=== PATIENT | female | born 1950 | race Hispanic/Latino ===

== ENCOUNTER → 2024-09-04 | Outpatient (CLI) | payer OTHER ==
--- NOTE | 2024-09-08 15:18 | HMCSR ---
APPROVED REPORT EXAM: Two-dimensional and M-mode echocardiogram with Doppler and color Doppler. INDICATION ICD: I10.0 Essential (primary) Hypertension 2D Dimensions RVDd3.7 cmLVEF(%)65.8 (>50%)LVED Vol(simp.)93.0 mL IVSd0.8 (0.7-1.1cm)FS(%)36 %LVES Vol(simp.)35.0 mL LVDd4.5 (3.8-5.6cm)Ao Root(2D)2.9 (2.0-3.7cm)LVEF(%, simp.)62 % PWd0.9 (0.7-1.1cm)LVOT diam1.9 (1.8-2.4cm)LA ESV INDEX (BP)26.40 mL/m2 LVDs2.9 (2.5-4.0cm)IVC diam1.7 cm Aortic Valve AoV Vmax2.1 m/Paty Peak GR17.8 mmHgLVOT Vmax1.6 m/s AoV VTI0.5 mAo Mean GR9.0 mmHgLVOT VTI0.33 m JAMISON (VMAX)2.0 cm2Al P1/2T818 msAVA (VTI) 2.0 cm2 Mitral Valve MV E Vmax93.0 cm/sDECEL Hoyw290 ms MV A Xsix345.1 cm/sP 1/2 T50 ms E/A ratio0.9MVA (PHT)4.4 cm2 MR Max PG27 mmHg TDI E/E' Hlwtlp11.2E/E' Shnziwd84.8 Pulmonary Valve PV Vmax1.2 m/sPV VTI0.31 mPV Mean GR4 mmHg PV Peak GR5.7 mmHg Tricuspid Valve TR Vmax2.9 m/sRAP (EST) 3 leIxUZOE29.8 mmHg TR Peak GR33.8 mmHg Left Ventricle Left ventricular cavity size is normal. There is normal LV segmental wall motion. There is normal lef t ventricular wall thickness. LVEF is 60-65%. No left ventricle thrombus noted on this study. Grade 2 diastolic dysfunction. Right Ventricle The right ventricle is normal size. The right ventricular systolic function is normal. Atria The left atrium size is normal. The right atrium size is normal. Aortic Valve Aortic valve is trileaflet. Aortic valve leaflets are sclerotic but open well. Trace aortic regurgita tion. There is no aortic valvular stenosis. Mitral Valve Mitral valve leaflets are mildly sclerotic but open well. Mitral regurgitation is trace. There is no mitral valve stenosis. Tricuspid Valve The tricuspid valve leaflets appear normal. There is mild tricuspid regurgitation. Right ventricular systolic pressure is estimated at 30-40 mmHg. Pulmonic Valve The pulmonic valve leaflets are thin and pliable; valve motion is normal. There is trace pulmonic gaurav vular regurgitation. Great Vessels The aortic root is normal in size. The IVC is normal in size and collapses >50% with inspiration. Pericardium No pericardial effusion. Conclusion Left ventricular cavity size is normal. LVEF is 60-65%. Grade 2 diastolic dysfunction. The right ventricle is normal size. The left atrium size is normal. Aortic valve is trileaflet. Aortic valve leaflets are sclerotic but open well. Trace aortic regurgitation. Mitral valve leaflets are mildly sclerotic but open well. Mitral regurgitation is trace. There is mild tricuspid regurgitation. Right ventricular systolic pressure is estimated at 30-40 mmHg. There is trace pulmonic valvular regurgitation. The aortic root is normal in size. The IVC is normal in size and collapses >50% with inspiration. No pericardial effusion.
== END | disposition home or self-care (01) ==
LOC: SHCH 14:10
PROVIDERS: ATTEND Internal Medicine Cardiovascular Disease
DX: I08.3 Combined rheumatic disorders of mitral, aortic and tricuspid valves (principal); I11.9 Hypertensive heart disease without heart failure
CPT/HCPCS: 93306

== ENCOUNTER → 2025-02-06 | Outpatient (CLI) | payer OTHER ==
--- NOTE | 2025-02-07 17:07 | HMCIMG ---
EXAM: CT Cardiac calcium scoring. CLINICAL HISTORY: Screening. TECHNIQUE: Thin collimated axial CT cardiac images were obtained. A CT scan is done according to ALARA (As Low As Reasonably Achievable). CONTRAST: None. COMPARISON: None provided. FINDINGS: Calcium Score: VESSEL Number of lesions Volume mm3 Equi. Mass/mg Calcium score LM 1 1.5 - 0.7 LAD 2 283.5 - 357.4 LCX 5 89.1 - 112.6 RCA 2 33.2 - 44.9 Total 10 407.4 - 515.7 IMPRESSION: The total calcium score is 515.7. 88th percentile. /[place]
== END | disposition home or self-care (01) ==
LOC: RAH 12:46
PROVIDERS: ATTEND Internal Medicine Critical Care Medicine
DX: Z13.6 Encounter for screening for cardiovascular disorders (principal)
CPT/HCPCS: 75571